=== PATIENT | male | born 1975 | race Caucasian/White ===

== ENCOUNTER 2017-01-06 21:18 | Emergency (ER) | payer OTHER ==
[2017-01-06 21:34] VITALS: BP 159/79
[2017-01-06] MEDS ORDERED: Iopamidol 612 MG/ML 100 ML Bottle IV PRN (23:33)
--- NOTE | 2017-01-07 01:05 | EDM.PDOC ---
ED HPI GENERAL MEDICAL PROBLEM - General Chief Complaint: Neurological Problem Stated Complaint: PRESSURE IN HEAD Time Seen by Provider: 01/06/17 21:50 Source of Information: Reports: Patient History Limitations: Reports: No Limitations - History of Present Illness INITIAL COMMENTS - FREE TEXT/NARRATIVE: This patient was seen in a few days ago in clinic because of right ear pain. He was diagnosed with otitis externa and placed on Cortisporin otic solution. He says today the pain is severe or behind his right ear in the right ear and radiating up to the area of the right eye as well as the right jaw. He denies any fever. Right Head Pain Score (Numeric/FACES): 8 - Related Data Allergies Allergy/AdvReac Type Severity Reaction Status Date / Time No Known Allergies Allergy Verified 01/06/17 21:42 Home Meds: Home Meds Hydrocort/Neomycin/Polymyxin B [Cortisporin Otic Soln] 4 drop EARRT TID [History] Past Medical History Genitourinary History: Reports: Other (See Below) Other Genitourinary History: patient has 1 kidney Musculoskeletal History: Reports: Other (See Below) Other Musculoskeletal History: herniated discs - Infectious Disease History Infectious Disease History: Reports: Chicken Pox - Past Surgical History Musculoskeletal Surgical History: Reports: Other (See Below) Other Musculoskeletal Surgeries/Procedures:: back surgery Social & Family History - Tobacco Use Smoking Status *Q: Never Smoker Second Hand Smoke Exposure: No - Caffeine Use Caffeine Use: Reports: Coffee - Alcohol Use Days Per Week of Alcohol Use: 1 Number of Drinks Per Day: 3 Total Drinks Per Week: 3 - Recreational Drug Use Recreational Drug Use: No ED ROS ENT - Review of Systems Review Of Systems: ROS reveals no pertinent complaints other than HPI. ED EXAM, ENT - Physical Exam Exam: See Below Exam Limited By: No Limitations General Appearance: Alert, WD/WN, Mild Distress Eye Exam: Bilateral Eye: EOMI, Normal Inspection, PERRL Ears: Other (The right TM is mottled and retracted. The right mastoid is severely tender.) Mouth/Throat: Normal Inspection, Normal Oropharynx Head: Atraumatic Neck: Normal Inspection Respiratory/Chest: Lungs Clear Cardiovascular: Regular Rate, Rhythm Course - Vital Signs Last Recorded V/S: Last Vital Signs Temp 37.1 C 01/06/17 21:44 Pulse 95 01/06/17 21:44 Resp 18 01/06/17 21:44 BP 159/79 H 01/06/17 21:44 Pulse Ox 98 01/06/17 21:44 - Orders/Labs/Meds Orders: Active Orders 24 hr Category Date Time Status Head w wo Cont [CT] Stat Exams 01/06/17 23:29 Taken Iopamidol [Isovue-300 (61%)] Med 01/06/17 23:33 Active 100 ml IV . DIRECTED PRN Medication Orders Iopamidol (Isovue-300 (61%)) 100 ml IV . DIRECTED PRN PRN Reason: RADIOLOGY EXAM Stop: 01/07/17 23:34 Last Admin: 01/06/17 23:48 Dose: 100 ml Labs: Laboratory Tests 01/06/17 01/06/17 01/06/17 Range/Units 22:12 22:31 22:31 WBC 10.4 (4.5-11.0) K/uL RBC 5.42 (4.30-5.90) M/uL Hgb 16.4 H (12.0-15.0) g/dL Hct 46.3 (40.0-54.0) % MCV 85 (80-98) fL MCH 30 (27-31) pg MCHC 35 (32-36) % Plt Count 226 (150-400) K/uL Neut % (Auto) 67 H (36-66) % Lymph % (Auto) 18 L (24-44) % Carver % (Auto) 12 H (2-6) % Eos % (Auto) 2 (2-4) % Baso % (Auto) 1 (0-1) % ESR 8 (0-20) mm/hr Sodium 141 (140-148) mmol/L Potassium 3.8 (3.6-5.2) mmol/L Chloride 104 (100-108) mmol/L Carbon Dioxide 26 (21-32) mmol/L Anion Gap 11.1 (5.0-14.0) mmol/L BUN 22 H (7-18) mg/dL Creatinine 1.2 (0.8-1.3) mg/dL Est Cr Clr Drug Dosing 82.33 mL/min Estimated GFR (MDRD) > 60 (>60) Glucose 90 (74-106) mg/dL Calcium 8.4 L (8.5-10.1) mg/dL Meds: Medications Generic Name Dose Route Start Last Admin Trade Name Madeleine PRN Reason Stop Dose Admin Iopamidol 100 ml 01/06/17 23:33 01/06/17 23:48 Isovue-300 (61%) IV 01/07/17 23:34 100 ml . DIRECTED PRN Administration RADIOLOGY EXAM - Radiology Interpretation Free Text/Narrative:: CT scan of the head with and without contrast was negative for any intracranial pathology and specifically there was no obvious abnormality to the mastoid despite the tenderness to that area. Departure - Departure Time of Disposition: Disposition: Home, Self-Care 01 Condition: fair Clinical Impression: Mastoiditis - Discharge Information Referrals: John Diehl MD [Primary Care Provider] - Forms: ED Department Discharge Additional Instructions: You appear to have an infection in the right ear and it may extend into the mastoid air cells behind your ear. Take the antibiotic Augmentin 875 mg twice daily for 10 days. Be sure to take the antibiotic for the full 10 days. Sometimes this antibiotic will cause diarrhea. If that happens again try taking some Imodium with it. For pain use the Narco 5/325, #20 tablets, one or 2 every 4 hours as needed. This medication can cause sedation and impair driving. See your Dr. for followup in 3 or 4 days. If at any time you seem to be getting worse then return to the ER or seek care elsewhere. - My Orders Last 24 Hours: My Active Orders 01/06/17 23:29 Head w wo Cont [CT] Stat 01/06/17 23:33 Iopamidol [Isovue-300 (61%)] 100 ml IV . DIRECTED PRN - Assessment/Plan Last 24 Hours: My Active Orders 01/06/17 23:29 Head w wo Cont [CT] Stat 01/06/17 23:33 Iopamidol [Isovue-300 (61%)] 100 ml IV . DIRECTED PRN
== END 2017-01-07 01:24 | disposition home or self-care (01) ==
LOC: JP.ED 21:18
DX: H70.91 Unspecified mastoiditis, right ear (principal); Z98.890 Other specified postprocedural states
CPT/HCPCS: 36415; 70470; 80048; 85025; 85651; 99284; Q9967